=== PATIENT | male | born 1985 ===

== ENCOUNTER 2020-04-21 10:24 | Emergency (ER) | payer OTHER ==
[~2020-04-21] VITALS: Ht 180.3 cm; Wt 74.8 kg
[2020-04-21] MEDS ORDERED: KETO10TA2 PO (11:29)
== END 2020-04-21 11:33 | disposition home or self-care (01) ==
LOC: ER 10:24
DX: S92.414A Nondisplaced fracture of proximal phalanx of right great toe, initial encounter for closed fracture (principal); S90.121A Contusion of right lesser toe(s) without damage to nail, initial encounter; W22.8XXA Striking against or struck by other objects, initial encounter; Y93.01 Activity, walking, marching and hiking; Y92.89 Other specified places as the place of occurrence of the external cause; Y99.8 Other external cause status

== ENCOUNTER 2020-04-29 10:44 | Outpatient (CLI) | payer OTHER ==
[~2020-04-29 10:44] MED LIST: KETO10TA2 PO
== END 2020-04-29 10:54 | disposition home or self-care (01) ==
LOC: RAD 10:44
PROVIDERS: ATTEND Orthopaedic Surgery
DX: S92.511A Displaced fracture of proximal phalanx of right lesser toe(s), initial encounter for closed fracture (principal); M54.5 Low back pain